=== PATIENT | male | born 1985 | race Caucasian/White ===

== ENCOUNTER → 2017-03-08 | Outpatient (CLI) | payer BC, OTHER ==
--- NOTE | 2017-03-08 09:57 | DIAGNOSTIC IMAGING REPORT ---
R KNEE 4 OR MORE VIEWS CLINICAL HISTORY: Right knee pain COMPARISON: None. DISCUSSION: No acute fractures or subluxations are visualized. There is concavity involving one of the anterior femoral condyles as visualized in the lateral view. It is unclear whether this is developmental or related to old trauma. The joint spaces appear well-preserved. IMPRESSION: No acute fractures identified. No erosive or destructive changes are visualized Electronically signed by: Alexander Linder M.D. 03/08/2017 9:56 AM Dictated Date/Time: 03/08/2017 9:55 AM
== END | disposition home or self-care (01) ==
LOC: C.RADPV 09:33
PROVIDERS: ATTEND Family Medicine
DX: M25.569 Pain in unspecified knee (principal)